=== PATIENT | male | born 1965 | race Asian ===

== ENCOUNTER 2019-03-09 20:28 | Inpatient (IN) | payer SELFPAY ==
--- NOTE | 2019-03-09 21:06 | PDOC ---
History of Present Illness - General Chief Complaint: Chest Pain Stated Complaint: CHEST PAIN Time Seen by Provider: 03/09/19 21:04 History Source: Patient Exam Limitations: No Limitations - History of Present Illness Initial Comments: 03/09/19 21:05 Shala Draper is a 53M from [place] with PMH 2ppd cigarette smoking history and hypercholesterolemia presenting with midsternal chest pain with exertion. Patient recently moved here from [place]. Previously otherwise healthy, sees private doctor in [place]. Now says that he has been having 3-4 days of substernal chest pain radiating down L arm after walking 5-6 minutes or walking up the stairs, denies chest pain at rest. No pain after or during meals, denies shortness of breath, personal cardiac or lung history, denies nausea/vomiting. Says he has been taking 81mg ASA daily per his PMD. Denies alcohol/drug use. No history of RI or stroke. No other PMH or medications taken. Past History - Past Medical History Allergies/Adverse Reactions: Allergies Allergy/AdvReac Type Severity Reaction Status Date / Time No Known Allergies Allergy Verified 03/09/19 20:39 Home Medications: Ambulatory Orders Aspirin 81 mg PO DAILY 03/09/19 COPD: No - Psycho Social/Smoking Cessation Hx Smoking History: Current every day smoker Have you smoked in the past 12 months: Yes Number of Cigarettes Smoked Daily: 20 Information on smoking cessation initiated: No Hx Alcohol Use: No Drug/Substance Use Hx: No Review of Systems - Review of Systems Able to Perform ROS?: Yes Constitutional: No: Symptoms Reported HEENTM: No: Symptoms Reported Respiratory: No: Symptoms reported Cardiac (ROS): Yes: Chest Pain. No: Lightheadedness, Palpitations ABD/GI: No: Constipated, Diarrhea, Nausea, Vomiting : No: Symptoms Reported Musculoskeletal: No: Symptoms Reported Integumentary: No: Symptoms Reported Neurological: No: Symptoms reported Endocrine: No: Symptoms Reported Hematologic/Lymphatic: No: Symptoms Reported All Other Systems: Reviewed and Negative *Physical Exam - Vital Signs Last Vital Signs Temp Pulse Resp BP Pulse Ox 98.3 F 82 19 134/74 100 03/09/19 20:34 03/09/19 20:34 03/09/19 20:34 03/09/19 20:34 03/09/19 20:34 - Physical Exam General Appearance: Yes: Nourished, Appropriately Dressed. No: Apparent Distress HEENT: positive: EOMI, KURT, Normal Voice, Pharynx Normal. negative: Scleral Icterus (R), Scleral Icterus (L), Pharyngeal Erythema, Tonsillar Exudate, Tonsillar Erythema Neck: positive: Trachea midline, Normal Thyroid, Supple. negative: Tender, Rigid, Lymphadenopathy (R), Lymphadenopathy (L) Respiratory/Chest: positive: Lungs Clear, Normal Breath Sounds. negative: Chest Tender, Respiratory Distress, Accessory Muscle Use, Crackles, Rales, Rhonchi Cardiovascular: positive: Regular Rhythm, Regular Rate, Other (speaking in full sentences without issue, observed standing and walking unassisted without elicitation of pain). negative: Edema, Murmur Gastrointestinal/Abdominal: positive: Normal Bowel Sounds, Flat, Soft. negative : Tender Musculoskeletal: positive: Normal Inspection. negative: CVA Tenderness Extremity: positive: Normal Capillary Refill, Normal Inspection, Normal Range of Motion. negative: Tender Integumentary: positive: Normal Color, Dry, Warm Neurologic: positive: Alert, Normal Mood/Affect, Normal Response Heart Score/ECG Review - History History: Highly suspicious - Electrocardiogram EKG: Non specific repolarization disturbance - Age Age: 45-65 - Risk Factors Risk Factors Heart Score: Yes Hx Hypercholesterolemia, No Hx Hypertension, No Hx Diabetes, Yes Smoking History, Yes Hx Obesity Based on the list above the patient has:: 1-2 risk factors - Troponin Troponin: </= normal limit - Score Heart Score - Total: 5 ED Treatment Course - LABORATORY CBC & Chemistry Diagram: 03/09/19 21:51 03/09/19 21:51 Medical Decision Making - Medical Decision Making 03/09/19 21:05 [facility] Bonny is a 53M from [place] with PMH 2ppd cigarette smoking history and hypercholesterolemia presenting with midsternal chest pain with exertion. Patient presentation is highly consistent with stable angina given specific finding of chest pain with exertion. No abnormalities noted on VS or PE. Patient placed on monitor, will evaluate via: ECG CMP CBC CP PT/INR/PTT CXR ECG in triage shows NSR with HR 77, QTc 418, no evidence of ischemic changes, T wave inversion in AVL concerning for inferior wall RI. No priors, will repeat in 1 hour. 03/09/19 22:34 CXR appears grossly normal with no concerning abnormalities on preliminary exam 03/09/19 22:39 No notable laboratory abnormalities. Initial troponins negative. Repeat ECG shows NSR with HR 70 and Qtc 419, no evidence of ischemic changes or T wave inversions. 03/09/19 23:[address] Jimenez regarding admission to tele/obs for ACS evaluation given picture highly consistent with stable angina. Patient and family at bedside had initial concerns about admission. Reiterated that without cardiology evaluation, patient was at increased risk of RI and possible HF if allowed to go home, and that prolonged low-exercise lifestyle to prevent exertional angina would not do anything to reduce this risk. Patient and family agree to overnight observation. Discharge - Discharge Information Problems reviewed: Yes Clinical Impression/Diagnosis: Chest pain Qualifiers: Chest pain type: unspecified Qualified Code(s): R07.9 - Chest pain, unspecified Condition: Stable - Admission Yes - Follow up/Referral - Patient Discharge Instructions - Post Discharge Activity
[2019-03-09] MEDS ORDERED: NITROGLYCERIN 2% OINTMENT - 1GM PACKET TD ONE ×2 (21:39→21:47)
[2019-03-09] MEDS ORDERED: ASPIRIN 81 MG CHEWABLE TABLETS PO ONE (21:54)
[2019-03-09] MEDS ORDERED: ASPIRIN 81 MG CHEWABLE TABLETS ONE (21:57)
[2019-03-09 22:03] LABS: BASO % 0.9 % (0-2.0); EOS % 3.4 % (0-4.5); HEMATOCRIT 45.5 % (35.4-49); HEMOGLOBIN 15.5 GM/dL (11.7-16.9); MCH 32.2 pg (25.7-33.7); MCHC 34.1 g/dl (32.0-35.9); MEAN CELL VOLUME 94.4 fl (80-96); MEAN PLT VOLUME 11.6 fl (7.5-11.1); NEUT % 54.7 % (42.8-82.8); PLATELET COUNT 177 K/MM3 (134-434); RBC 4.82 M/mm3 (4.00-5.60); RDW 13.1 % (11.9-15.9); WHITE BLOOD COUNT 9.1 K/mm3 (4.0-10.0)
[2019-03-09 22:29] LABS: ALBUMIN 3.8 g/dl (3.4-5.0); BILIRUBIN,TOTAL 0.4 mg/dL (0.2-1); BLOOD UREA NITROGEN 11.4 mg/dL (7-18); CALCIUM 8.6 mg/dL (8.5-10.1); CREATININE 1.1 mg/dL (0.55-1.3); POTASSIUM 4.3 mmol/L (3.5-5.1); TOT PROT 6.7 g/dl (6.4-8.2)
[2019-03-09 22:31] LABS: INR 0.98 (0.83-1.09); PROTHROMBIN TIME (PATIENT) 11.6 SEC (9.7-13.0)
[2019-03-09 22:33] LABS: ACTIVATED PTT 33.1 SECONDS (25.2-36.5)
--- NOTE | 2019-03-09 22:36 | PDOC ---
Documentation entered by Rose Marie Garcia SCRIBE, acting as scribe for Kristian Deras MD. Kristian Deras MD: This documentation has been prepared by the Jose wood Adrianna, SCRIBE, under my direction and personally reviewed by me in its entirety. I confirm that the documentation accurately reflects all work, treatment, procedures, and medical decision making performed by me. Attending Attestation - Resident Resident Name: Vu Loja - ED Attending Attestation I have performed the following: I have examined & evaluated the patient, The case was reviewed & discussed with the resident, I agree w/resident's findings & plan, Exceptions are as noted - HPI HPI: 53 y.o M, PMH of HLD, presenting with chest pain. Patient endorses retro- sternal chest pain on exertion for the past 3-4 days, which radiates down his left arm. Allergies: NKA, NKDA Surgical History: None reported Social History: Current everyday smoker (1ppd) - Physicial Exam PE: 03/09/19 22:33 Patient is awake and alert, well-nourished, in no distress Normocephalic and atraumatic PERRLA, EOMI, No JVD CTA RRR No lower extremity edema - Medical Decision Making 03/09/19 22:35 Patient is a 53-year-old male with history of smoking, hyperlipidemia and hypertension who comes in with signs and symptoms of unstable angina. Initial EKG reveals inverted T in aVL but no other evidence of acute ischemia. First set of cardiac enzymes within normal limit. Chest x-ray reveals no evidence of cardiomegaly/infiltrate or effusion. Patient's heart score is noted to be 4. Patient will be placed on telemetry/obvious for serial enzymes and cardiac evaluation.
--- NOTE | 2019-03-09 22:57 | PN ---
Teaching Attending Note Name of Resident: Nancy Jimenez ATTENDING PHYSICIAN STATEMENT I saw and evaluated the patient. I reviewed the resident's note and discussed the case with the resident. I agree with the resident's findings and plan as documented. SUBJECTIVE: Patient is a 53 year old man from [place] with PMH Heavy tobacco use and Hypercholesterolemia presenting with midsternal chest pain with exertion. Patient recently moved here from [place]. Previously otherwise healthy, sees private doctor in [place]. Now says that he has been having 3-4 days of substernal chest pain radiating down L arm after walking 5-6 minutes or walking up the stairs. Denies chest pain at rest. No pain after or during meals, denies shortness of breath, personal cardiac or lung history, denies nausea/vomiting. Says he has been taking 81mg ASA daily per his PMD. Denies alcohol or illicit drug use. No history of NE or stroke. Denies fever, chills, headache, nausea, vomiting, abdominal pain, dysuria, frequency, diarrhea or constipation. Has extensive family history of CAd and acute MIs. OBJECTIVE: Alert Vital Signs Period Temp Pulse Resp BP Sys/Caal Pulse Ox Last 24 Hr 98.3 F 82 19 134/74 100 HEENT: No Jaundice, eye redness or discharge, PERRLA, EOMI. Normocephalic, atraumatic. External ears are normal and hearing is grossly intact. No nasal discharge. Neck: Supple, nontender. No palpable adenopathy or thyromegaly. No JVD Chest: Good effort. Clear to auscultation and percussion. Heart: Regular. No S3, rub or murmur Abdomen: Not distended, soft, nontender and no HSM. No rebound or guarding. Normal bowel sounds. Ext: Peripheral pulses intact. No leg edema. Skin: Warm and dry. No petechiae, rash or ecchymosis. Neuro: Alert. Oriented x3. CN 2-12 grossly intact. Sensation grossly intact in all four extremities and DTR are symmetric. Psych: Appropriate mood and affect. Good insight. Home Medications Medication Instructions Recorded Aspirin 81 mg PO DAILY 03/09/19 Abnormal Lab Results 03/09/19 03/09/19 21:51 21:51 MPV 11.6 H Chloride 108 H Anion Gap 6 L Random Glucose 139 H ALT 106 H ASSESSMENT AND PLAN: 1. Chest pain - Has risk factors for ACS. Now pain free. Got Nitropaste and Aspirin 324 mg in the ER. EKG is NSR with no significant ST-T wave changes and initial troponin is negative. Will admit to telemetry to rule out ACS, get ECHO , fasting lipid profile, HbA1c, TSH and consult cardiology. 2. Tobacco Use Counseled on risks associated with tobacco use. We will provide patient all the necessary assistance to facilitate smoking cessation and prescribe Nicotine patch. 3. Overweight Counseled on the risks associated with being overweight. Will provide patient all the necessary assistance, counseling and positive reinforcement to facilitate weight loss. Consult stewardesses teacher. 4. DVT prophylaxis - Lovenox 40 mg SQ q 24 hours. 5. Advance directives - Full code
--- NOTE | 2019-03-10 00:43 | HP ---
CHIEF COMPLAINT: chest pain PCP: none HISTORY OF PRESENT ILLNESS: Patient is a 53 y/o male with a history of HLD (not on medication) who presents for chest pain. Patient has been having this chest pain for 4-5 days and it is worsening. The pain is only present with exercise. If the patient rests then the pain resolves. Patient denies shortness of breath but does fell sweaty with the pain. He describes the pain as sharp and non radiating to his back, it does radiate down his left arm. Patient denies ever having this pain in the past and has not had any cardiac testing. Denies fever, chills, nausea, vomiting, shortness of breath, or headache. ER course was notable for: (1) (2) (3) Recent Travel: moved from [place] one month ago PAST MEDICAL HISTORY: HLD PAST SURGICAL HISTORY: denies Social History: Smokinppd since teenager Alcohol: Drugs: denies FMHX: very strong cardiac family history, DC in mother, father, uncles Allergies No Known Allergies Allergy (Verified 03/09/19 20:39) HOME MEDICATIONS: Home Medications Medication Instructions Recorded Aspirin 81 mg PO DAILY 03/09/19 REVIEW OF SYSTEMS CONSTITUTIONAL: Absent: fever, chills, diaphoresis, generalized weakness, malaise, loss of appetite, weight change HEENT: Absent: rhinorrhea, nasal congestion, throat pain, throat swelling, difficulty swallowing, mouth swelling, ear pain, eye pain, visual changes CARDIOVASCULAR: Absent: chest pain, syncope, palpitations, irregular heart rate, lightheadedness , peripheral edema RESPIRATORY: Absent: cough, shortness of breath, dyspnea with exertion, orthopnea, wheezing, stridor, hemoptysis GASTROINTESTINAL: Absent: abdominal pain, abdominal distension, nausea, vomiting, diarrhea, constipation, melena, hematochezia GENITOURINARY: Absent: dysuria, frequency, urgency, hesitancy, hematuria, flank pain, genital pain MUSCULOSKELETAL: Absent: myalgia, arthralgia, joint swelling, back pain, neck pain SKIN: Absent: rash, itching, pallor HEMATOLOGIC/IMMUNOLOGIC: Absent: easy bleeding, easy bruising, lymphadenopathy, frequent infections ENDOCRINE: Absent: unexplained weight gain, unexplained weight loss, heat intolerance, cold intolerance NEUROLOGIC: Absent: headache, focal weakness or paresthesias, dizziness, unsteady gait, seizure, mental status changes, bladder or bowel incontinence PSYCHIATRIC: Absent: anxiety, depression, suicidal or homicidal ideation, hallucinations. PHYSICAL EXAMINATION Vital Signs - 24 hr 03/09/19 03/09/19 20:34 23:07 Temperature 98.3 F Pulse Rate 82 Pulse Rate [ 78 Apical] Respiratory 19 18 Rate Blood Pressure 134/74 Blood Pressure 119/74 [Left Arm] O2 Sat by Pulse 100 100 Oximetry (%) GENERAL: Awake, alert, and fully oriented, in no acute distress. HEAD: Normal with no signs of trauma. EYES: Pupils equal, round and reactive to light, extraocular movements intact, EARS, NOSE, THROAT: Moist mucous membranes. LUNGS: Breath sounds equal, clear to auscultation bilaterally. No wheezes, and no crackles. No accessory muscle use. HEART: Regular rate and rhythm, normal S1 and S2 without murmur, rub or gallop. ABDOMEN: Soft, nontender, not distended, normoactive bowel sounds, no guarding, MUSCULOSKELETAL: Normal range of motion at all joints. No bony deformities or tenderness. No CVA tenderness. LOWER EXTREMITIES: 2+ pulses, warm, well-perfused. No calf tenderness. No peripheral edema. SKIN: Warm, dry, normal turgor, no rashes or lesions noted, normal capillary refill. CBC, BMP 03/09/19 21:51 03/09/19 21:51 ASSESSMENT/PLAN: Patient is a 53 y/o male with a history of HLD (not on medication) who presents for chest pain. #angina - stable in description, but new in nature, patient likely needs cath given history - monitor on tele - trops negative x2 - EKg only one t wave inversion but not in contiguous leads - low suspicion for ACS - continue daily ASA - f/u lipids and restart a statin - f/u Dr. Gandara DVT ppx - continue lovenox Dispo: monitor on tele, patient can likely go home in the morning Visit type - Emergency Visit Emergency Visit: Yes ED Registration Date: 03/09/19 Care time: The patient presented to the Emergency Department on the above date and was hospitalized for further evaluation of their emergent condition. - New Patient This patient is new to me today: Yes Date on this admission: 03/10/19 - Critical Care Critical Care patient: No ATTENDING PHYSICIAN STATEMENT I saw and evaluated the patient. I reviewed the resident's note and discussed the case with the resident. I agree with the resident's findings and plan as documented. SUBJECTIVE: OBJECTIVE: ASSESSMENT AND PLAN:
[2019-03-10 06:47] VITALS: BMI 28.4
[2019-03-10 07:55] LABS: BASO % 0.5 % (0-2.0); EOS % 3.6 % (0-4.5); HEMATOCRIT 44.5 % (35.4-49); HEMOGLOBIN 15.4 GM/dL (11.7-16.9); LYMPH % 36.2 % (8-40); MCH 32.4 pg (25.7-33.7); MCHC 34.5 g/dl (32.0-35.9); MEAN CELL VOLUME 93.8 fl (80-96); MONO % 6.4 % (3.8-10.2); NEUT % 53.3 % (42.8-82.8); PLATELET COUNT 177 K/MM3 (134-434); RBC 4.75 M/mm3 (4.00-5.60); RDW 12.9 % (11.9-15.9); WHITE BLOOD COUNT 6.8 K/mm3 (4.0-10.0)
[2019-03-10 08:01] LABS: ALBUMIN 3.6 g/dl (3.4-5.0); BILIRUBIN,TOTAL 0.5 mg/dL (0.2-1); CALCIUM 8.7 mg/dL (8.5-10.1); MAGNESIUM 2.4 mg/dL (1.8-2.4); PHOSPHOROUS 3.2 mg/dL (2.5-4.9); POTASSIUM 4.6 mmol/L (3.5-5.1); TOT PROT 6.4 g/dl (6.4-8.2)
[2019-03-10 08:20] LABS: CHOLESTEROL 194 mg/dL (50-200); HDL CHOLESTEROL 35 mg/dL (40-60); LDL CHOLESTEROL (ONLY SJRH) 143 mg/dL (5-100); TRIGLYCERIDES 133 mg/dL (0-150)
--- NOTE | 2019-03-10 09:22 | CON.CARD ---
Consult Consult Specialty:: Cardiology consultation for dr. Gandara - History of Present Illness History of Present Illness: Patient is a 53 y/o male with a history of HLD (not on medication) who presents for chest pain. Patient has been having this chest pain for 4-5 days and it is worsening. The pain is only present with exercise. If the patient rests then the pain resolves. Patient denies shortness of breath but does fell sweaty with the pain. He describes the pain as sharp and non radiating to his back, it does radiate down his left arm. Patient denies ever having this pain in the past and has not had any cardiac testing. Denies fever, chills, nausea, vomiting, shortness of breath, or headache. - History Source History Provided By: Patient, Medical Record - Alcohol/Substance Use Hx Alcohol Use: No - Smoking History Smoking history: Current every day smoker Have you smoked in the past 12 months: Yes Aproximately how many cigarettes per day: 20 Home Medications - Allergies Allergies/Adverse Reactions: Allergies Allergy/AdvReac Type Severity Reaction Status Date / Time No Known Allergies Allergy Verified 03/09/19 20:39 - Home Medications Home Medications: Ambulatory Orders Aspirin 81 mg PO DAILY 03/09/19 Vital Signs: Vital Signs Temperature 97.5 F L 03/10/19 02:05 Pulse Rate 65 03/10/19 03:08 Respiratory Rate 18 03/10/19 06:20 Blood Pressure 134/77 03/10/19 02:05 O2 Sat by Pulse Oximetry (%) 100 03/10/19 06:20 Constitutional: Yes: Well Nourished, No Distress, Calm Eyes: Yes: WNL, Conjunctiva Clear, EOM Intact HENT: Yes: WNL, Atraumatic, Normocephalic Neck: Yes: WNL, Supple, Trachea Midline Respiratory: Yes: WNL, Regular, CTA Bilaterally Gastrointestinal: Yes: WNL, Normal Bowel Sounds Renal/: Yes: WNL Cardiovascular: Yes: WNL, Regular Rate and Rhythm Heart Sounds: Yes: S1, S2 Musculoskeletal: Yes: WNL Extremities: Yes: WNL Integumentary: Yes: WNL Neurological: Yes: WNL, Alert, Oriented ...Motor Strength: WNL Psychiatric: Yes: WNL, Alert, Oriented - Other Data Labs, Other Data: CBC, BMP 03/10/19 05:30 03/10/19 05:30 INR, PTT INR 0.98 (0.83-1.09) 03/09/19 21:51 Troponin, BNP 03/09/19 03/10/19 21:51 01:34 Troponin I < 0.02 < 0.02 Troponin, BNP 03/09/19 03/10/19 21:51 01:34 Troponin I < 0.02 < 0.02 Laboratory Tests 03/09/19 03/09/19 03/09/19 21:51 21:51 21:51 WBC 9.1 RBC 4.82 Hgb 15.5 Hct 45.5 MCV 94.4 MCH 32.2 MCHC 34.1 RDW 13.1 Plt Count 177 MPV 11.6 H Absolute Neuts (auto) 5.0 Neutrophils % 54.7 Lymphocytes % 34.0 Monocytes % 7.0 Eosinophils % 3.4 Basophils % 0.9 Nucleated RBC % 0 PT with INR INR PTT (Actin FS) Sodium 140 Potassium 4.3 Chloride 108 H Carbon Dioxide 26 Anion Gap 6 L BUN 11.4 Creatinine 1.1 Est GFR (CKD-EPI)AfAm 87.74 Est GFR (CKD-EPI)NonAf 75.70 POC Glucometer Random Glucose 139 H Calcium 8.6 Phosphorus Magnesium Total Bilirubin 0.4 AST 35 ALT 106 H Alkaline Phosphatase 85 Creatine Kinase 130 Troponin I < 0.02 Total Protein 6.7 Albumin 3.8 Triglycerides Cholesterol Total LDL Cholesterol HDL Cholesterol 03/09/19 03/10/19 03/10/19 21:51 01:34 02:37 WBC RBC Hgb Hct MCV MCH MCHC RDW Plt Count MPV Absolute Neuts (auto) Neutrophils % Lymphocytes % Monocytes % Eosinophils % Basophils % Nucleated RBC % PT with INR 11.60 INR 0.98 PTT (Actin FS) 33.1 Sodium Potassium Chloride Carbon Dioxide Anion Gap BUN Creatinine Est GFR (CKD-EPI)AfAm Est GFR (CKD-EPI)NonAf POC Glucometer 126 Random Glucose Calcium Phosphorus Magnesium Total Bilirubin AST ALT Alkaline Phosphatase Creatine Kinase Troponin I < 0.02 Total Protein Albumin Triglycerides Cholesterol Total LDL Cholesterol HDL Cholesterol 03/10/19 03/10/19 03/10/19 05:30 05:30 05:30 WBC 6.8 RBC 4.75 Hgb 15.4 Hct 44.5 MCV 93.8 MCH 32.4 MCHC 34.5 RDW 12.9 Plt Count 177 MPV 12.0 H Absolute Neuts (auto) 3.6 Neutrophils % 53.3 Lymphocytes % 36.2 Monocytes % 6.4 Eosinophils % 3.6 Basophils % 0.5 Nucleated RBC % 0 PT with INR INR PTT (Actin FS) Sodium 141 Potassium 4.6 Chloride 108 H Carbon Dioxide 24 Anion Gap 9 BUN 10.0 Creatinine 1.0 Est GFR (CKD-EPI)AfAm 98.46 Est GFR (CKD-EPI)NonAf 84.95 POC Glucometer Random Glucose 119 H Calcium 8.7 Phosphorus 3.2 Magnesium 2.4 Total Bilirubin 0.5 AST 43 H ALT 107 H Alkaline Phosphatase 73 Creatine Kinase Troponin I Total Protein 6.4 Albumin 3.6 Triglycerides 133 Cholesterol 194 Total LDL Cholesterol 143 H HDL Cholesterol 35 L 03/10/19 06:45 WBC RBC Hgb Hct MCV MCH MCHC RDW Plt Count MPV Absolute Neuts (auto) Neutrophils % Lymphocytes % Monocytes % Eosinophils % Basophils % Nucleated RBC % PT with INR INR PTT (Actin FS) Sodium Potassium Chloride Carbon Dioxide Anion Gap BUN Creatinine Est GFR (CKD-EPI)AfAm Est GFR (CKD-EPI)NonAf POC Glucometer 125 Random Glucose Calcium Phosphorus Magnesium Total Bilirubin AST ALT Alkaline Phosphatase Creatine Kinase Troponin I Total Protein Albumin Triglycerides Cholesterol Total LDL Cholesterol HDL Cholesterol Imaging - Results Chest X-ray: Image Reviewed (no i/e) EKG: Image Reviewed (sr wnl) Problem List - Problems (1) Chest pain Code(s): R07.9 - CHEST PAIN, UNSPECIFIED Qualifiers: Chest pain type: unspecified Qualified Code(s): R07.9 - Chest pain, unspecified Assessment/Plan 53 y/o male with a history of HLD (not on medication), strong family CAD h/o, smoker who presents for chest pain. Patient has been having this chest pain for 4-5 days and it is worsening. The pain is only present with exercise. r/o mi neg tele neg ekg nl Plan; r/o mi asa/Plavix lipitor Toprol echo mibi stress test Coverage for dr. Gandara
[2019-03-10] MEDS ORDERED: CLOPIDOGREL BISULFATE 300 MG TABLET PO ONE (09:30)
--- NOTE | 2019-03-10 09:53 | PN ---
Progress Note (short form) - Note Progress Note: Patient is an yoruba speaking , presented with chest pain on exertion. he is visiting here from [place], has been here a month. Vital Signs Temperature 97.5 F L 03/10/19 02:05 Pulse Rate 65 03/10/19 03:08 Respiratory Rate 18 03/10/19 06:20 Blood Pressure 134/77 03/10/19 02:05 O2 Sat by Pulse Oximetry (%) 100 03/10/19 06:20 GENERAL: The patient is awake, alert, and fully oriented, in no acute distress. HEAD: Normal with no signs of trauma. EYES: PERRL, extraocular movements intact, sclera anicteric, conjunctiva clear. ENT: Ears normal, oropharynx clear without exudates, moist mucous membranes. NECK: Trachea midline, full range of motion, supple. LUNGS: Breath sounds equal, clear to auscultation bilaterally, no wheezes, no crackles, no accessory muscle use. HEART: Regular rate and rhythm, S1, S2 without murmur, rub or gallop. ABDOMEN: Soft, nontender, nondistended, normoactive bowel sounds, no guarding, no rebound, no hepatosplenomegaly, no masses. EXTREMITIES: 2+ pulses, warm, well-perfused, no edema. NEUROLOGICAL: Cranial nerves II through XII grossly intact. Normal speech, gait not observed. PSYCH: Normal mood, normal affect. SKIN: Warm, dry, normal turgor, no rashes or lesions noted CBCD WBC 6.8 K/mm3 (4.0-10.0) 03/10/19 05:30 RBC 4.75 M/mm3 (4.00-5.60) 03/10/19 05:30 Hgb 15.4 GM/dL (11.7-16.9) 03/10/19 05:30 Hct 44.5 % (35.4-49) 03/10/19 05:30 MCV 93.8 fl (80-96) 03/10/19 05:30 MCHC 34.5 g/dl (32.0-35.9) 03/10/19 05:30 RDW 12.9 % (11.9-15.9) 03/10/19 05:30 Plt Count 177 K/MM3 (134-434) 03/10/19 05:30 MPV 12.0 fl (7.5-11.1) H 03/10/19 05:30 CMP Sodium 141 mmol/L (136-145) 03/10/19 05:30 Potassium 4.6 mmol/L (3.5-5.1) 03/10/19 05:30 Chloride 108 mmol/L (98-107) H 03/10/19 05:30 Carbon Dioxide 24 mmol/L (21-32) 03/10/19 05:30 Anion Gap 9 MMOL/L (8-16) 03/10/19 05:30 BUN 10.0 mg/dL (7-18) 03/10/19 05:30 Creatinine 1.0 mg/dL (0.55-1.3) 03/10/19 05:30 Random Glucose 119 mg/dL (74-106) H 03/10/19 05:30 Calcium 8.7 mg/dL (8.5-10.1) 03/10/19 05:30 Total Bilirubin 0.5 mg/dL (0.2-1) 03/10/19 05:30 AST 43 U/L (15-37) H 03/10/19 05:30 ALT 107 U/L (13-61) H 03/10/19 05:30 Alkaline Phosphatase 73 U/L (45-117) 03/10/19 05:30 Total Protein 6.4 g/dl (6.4-8.2) 03/10/19 05:30 Albumin 3.6 g/dl (3.4-5.0) 03/10/19 05:30 CARDIAC ENZYMES Creatine Kinase 130 U/L (26-308) 03/09/19 21:51 Troponin I < 0.02 ng/ml (0.00-0.05) 03/10/19 01:34 Current Medications Generic Name Dose Route Start Last Admin Trade Name Freq PRN Reason Stop Dose Admin Aspirin 81 mg 03/10/19 10:00 Asa - PO DAILY [facility] Atorvastatin Calcium 20 mg 03/10/19 22:00 Lipitor - PO HS [facility] Clopidogrel Bisulfate 75 mg 03/10/19 10:00 Plavix - PO DAILY [facility] Enoxaparin Sodium 40 mg 03/10/19 10:00 Lovenox - SQ DAILY [facility] Metoprolol Succinate 25 mg 03/10/19 10:00 Toprol Xl - PO DAILY [facility] Home Medications Medication Instructions Recorded Aspirin 81 mg PO DAILY 03/09/19 Assessment and plan: Patient is a 53yo male with a PMhx of HLD (not on medication), strong family CAD h/o smoking who presents with chest pain on exertion. Patient has been having this chest pain for 4-5 days and it is worsening. # Angina r/o ACS ; ekg nl on asa/plavix/lipitor/toprol , cardio consult seen by dr emma berumen MD echo, mibi stress test on tuesday. DVT Px: continue lovenox Laboratory Tests 03/09/19 03/10/19 03/10/19 21:51 01:34 05:30 Troponin I < 0.02 < 0.02 Triglycerides 133 Cholesterol 194 Total LDL Cholesterol 143 H HDL Cholesterol 35 L Visit type - Emergency Visit Emergency Visit: Yes ED Registration Date: 03/09/19 Care time: The patient presented to the Emergency Department on the above date and was hospitalized for further evaluation of their emergent condition. - New Patient This patient is new to me today: Yes Date on this admission: 03/10/19 - Critical Care Critical Care patient: No - Discharge Referral Referred to [facility] Med P.C.: No
[2019-03-10] MEDS: ENOXAPARIN NA (PORCINE) 40 MG/0.4 ML DISP.SYRIN SQ SCH (10:08)
[2019-03-10] MEDS: CLOPIDOGREL BISULFATE 75 MG TABLET (FP) PO SCH (10:08)
[2019-03-10] MEDS: ASPIRIN 81 MG CHEWABLE TABLETS PO SCH (10:08)
[2019-03-10] MEDS: metoPROLOL SUCCINATE 25 MG TAB.SR.24H (FP) PO SCH (10:08)
--- NOTE | 2019-03-10 14:39 | EKG ---
Test Reason : Blood Pressure : / mmHG Vent. Rate : 079 BPM Atrial Rate : 079 BPM P-R Int : 150 ms QRS Dur : 088 ms QT Int : 358 ms P-R-T Axes : 045 055 063 degrees QTc Int : 410 ms NORMAL SINUS RHYTHM NORMAL ECG WHEN COMPARED WITH ECG OF 09-MAR-2019 22:51, NO SIGNIFICANT CHANGE WAS FOUND Confirmed by HARRISON MENJIVAR, MITCHELL ([id number]) on 03/10/2019 2:39:36 PM Referred By: Jamie DAWSON Confirmed By:MITCHELL TERRY MD
--- NOTE | 2019-03-10 14:52 | EKG ---
Test Reason : Blood Pressure : / mmHG Vent. Rate : 077 BPM Atrial Rate : 077 BPM P-R Int : 150 ms QRS Dur : 092 ms QT Int : 370 ms P-R-T Axes : 069 064 072 degrees QTc Int : 418 ms NORMAL SINUS RHYTHM NORMAL ECG NO PREVIOUS ECGS AVAILABLE Confirmed by HARRISON MENJIVAR, MITCHELL ([id number]) on 03/10/2019 2:52:20 PM Referred By: Confirmed By:MITCHELL TERRY MD
--- NOTE | 2019-03-10 14:55 | EKG ---
Test Reason : Blood Pressure : / mmHG Vent. Rate : 070 BPM Atrial Rate : 070 BPM P-R Int : 158 ms QRS Dur : 092 ms QT Int : 388 ms P-R-T Axes : 073 052 064 degrees QTc Int : 419 ms NORMAL SINUS RHYTHM NORMAL ECG NO PREVIOUS ECGS AVAILABLE Confirmed by HARRISON MENJIVAR, MITCHELL ([id number]) on 03/10/2019 2:55:23 PM Referred By: Confirmed By:MITCHELL TERRY MD
[2019-03-10] MEDS: ATORVASTATIN CA 20 MG TABLET (FP) PO SCH (21:47)
[2019-03-10] MEDS: NICOTINE 14 MG/24 HOURS TOPICAL PATCH TD SCH (21:47)
[2019-03-11] MEDS: NICOTINE 14 MG/24 HOURS TOPICAL PATCH TD SCH (09:53)
[2019-03-11] MEDS: ASPIRIN 81 MG CHEWABLE TABLETS PO SCH (09:53)
[2019-03-11] MEDS: metoPROLOL SUCCINATE 25 MG TAB.SR.24H (FP) PO SCH (09:53)
[2019-03-11] MEDS: CLOPIDOGREL BISULFATE 75 MG TABLET (FP) PO SCH (09:53)
[2019-03-11] MEDS: ENOXAPARIN NA (PORCINE) 40 MG/0.4 ML DISP.SYRIN SQ SCH (09:53)
--- NOTE | 2019-03-11 11:41 | PN ---
Progress Note, Physician History of Present Illness: Patient is a 53 y/o male with a history of HLD (not on medication) who presents for chest pain. Patient has been having this chest pain for 4-5 days and it is worsening. The pain is only present with exercise. If the patient rests then the pain resolves. Patient denies shortness of breath but does fell sweaty with the pain. He describes the pain as sharp and non radiating to his back, it does radiate down his left arm. Patient denies ever having this pain in the past and has not had any cardiac testing. Denies fever, chills, nausea, vomiting, shortness of breath, or headache. - Current Medication List Current Medications: Active Medications Aspirin (Asa -) 81 mg PO DAILY [facility] Last Admin: 03/11/19 09:53 Dose: 81 mg Atorvastatin Calcium (Lipitor -) 20 mg PO HS [facility] Last Admin: 03/10/19 21:47 Dose: 20 mg Clopidogrel Bisulfate (Plavix -) 75 mg PO DAILY [facility] Last Admin: 03/11/19 09:53 Dose: 75 mg Enoxaparin Sodium (Lovenox -) 40 mg SQ DAILY [facility] Last Admin: 03/11/19 09:53 Dose: 40 mg Metoprolol Succinate (Toprol Xl -) 25 mg PO DAILY [facility] Last Admin: 03/11/19 09:53 Dose: 25 mg Nicotine (Nicoderm Patch -) 14 mg TD DAILY [facility] Last Admin: 03/11/19 09:53 Dose: 14 mg - Objective Vital Signs: Vital Signs Temperature 98.2 F 03/11/19 10:00 Pulse Rate 88 03/11/19 10:00 Respiratory Rate 22 H 03/11/19 10:00 Blood Pressure 126/80 03/11/19 10:00 O2 Sat by Pulse Oximetry (%) 99 03/11/19 09:00 Eyes: Yes: WNL, Conjunctiva Clear, EOM Intact HENT: Yes: WNL, Atraumatic, Normocephalic Neck: Yes: WNL, Supple, Trachea Midline Cardiovascular: Yes: WNL, Regular Rate and Rhythm Respiratory: Yes: WNL, Regular, CTA Bilaterally Gastrointestinal: Yes: WNL, Normal Bowel Sounds Genitourinary: Yes: WNL Musculoskeletal: Yes: WNL Extremities: Yes: WNL Edema: No Integumentary: Yes: WNL Neurological: Yes: WNL, Alert, Oriented ...Motor Strength: WNL Psychiatric: Yes: WNL Labs: CBC, BMP 03/10/19 05:30 03/10/19 05:30 INR, PTT INR 0.98 (0.83-1.09) 03/09/19 21:51 Problem List - Problems (1) Chest pain Code(s): R07.9 - CHEST PAIN, UNSPECIFIED Qualifiers: Chest pain type: unspecified Qualified Code(s): R07.9 - Chest pain, unspecified Assessment/Plan 53 y/o male with a history of HLD (not on medication), strong family CAD h/o, smoker who presents for chest pain. Patient has been having this chest pain for 4-5 days and it is worsening. The pain is only present with exercise. r/o mi neg tele neg ekg nl Plan; r/o mi asa/Plavix lipitor Toprol echo mibi stress test in am Coverage for dr. Gandara
--- NOTE | 2019-03-11 13:35 | PN ---
Physical Exam: SUBJECTIVE: Patient seen and examined at bedside. No acute complaints. Chest pain resolved. OBJECTIVE: Vital Signs Period Temp Pulse Resp BP Sys/Caal Pulse Ox Last 24 Hr 97.5 F-98.3 F 67-88 18-22 116-135/67-83 99-100 GENERAL: A&Ox3, no acute distress EYES: PERRLA, EOMI ENT: Moist mucus membranes NECK: No JVD LUNGS: CTA, no wheezes HEART: RRR, no murmurs ABDOMEN: Soft, nontender, BS present MUSCULOSKELETAL: No CVA Tenderness EXTREMITIES: 2+ pulses, no edema. NEUROLOGICAL: Cranial nerves II-XII intact. Laboratory Results - last 24 hr 03/11/19 03/11/19 04:37 12:29 POC Glucometer 127 127 Active Medications Generic Name Dose Route Start Last Admin Trade Name Freq PRN Reason Stop Dose Admin Aspirin 81 mg 03/10/19 10:00 03/11/19 09:53 Asa - PO 81 mg DAILY [facility] Administration Atorvastatin Calcium 20 mg 03/10/19 22:00 03/10/19 21:47 Lipitor - PO 20 mg HS [facility] Administration Clopidogrel Bisulfate 75 mg 03/10/19 10:00 03/11/19 09:53 Plavix - PO 75 mg DAILY [facility] Administration Enoxaparin Sodium 40 mg 03/10/19 10:00 03/11/19 09:53 Lovenox - SQ 40 mg DAILY [facility] Administration Metoprolol Succinate 25 mg 03/10/19 10:00 03/11/19 09:53 Toprol Xl - PO 25 mg DAILY [facility] Administration Nicotine 14 mg 03/10/19 20:45 03/11/19 09:53 Nicoderm Patch - TD 14 mg DAILY [facility] Administration ASSESSMENT/PLAN: 53 year old male with a history of hyperlipidemia here for anginal chest pain to rule out ACS #Chest Pain: coudl be anginal in origin -for stress MIBI in the morning -on tele -cards consulted -ASA, plavix -statin -EKG without signs of ischemia -metoprolol DVT ppx -lovenox Dispo: monitor on tele, patient can likely go home in the morning Visit type - Emergency Visit Emergency Visit: No - New Patient This patient is new to me today: Yes Date on this admission: 03/11/19 - Critical Care Critical Care patient: No ATTENDING PHYSICIAN STATEMENT I saw and evaluated the patient. I reviewed the resident's note and discussed the case with the resident. I agree with the resident's findings and plan as documented. SUBJECTIVE: OBJECTIVE: ASSESSMENT AND PLAN:
--- NOTE | 2019-03-11 18:39 | PN ---
Teaching Attending Note Name of Resident: Baljeet Cochran ATTENDING PHYSICIAN STATEMENT I saw and evaluated the patient. I reviewed the resident's note and discussed the case with the resident. I agree with the resident's findings and plan as documented. Patient is an setswana speaking , Denies any chest pain with no acute distress. he is visiting here from [place], has been here a month. Vital Signs Temperature 97.5 F L 03/10/19 02:05 Pulse Rate 65 03/10/19 03:08 Respiratory Rate 18 03/10/19 06:20 Blood Pressure 134/77 03/10/19 02:05 O2 Sat by Pulse Oximetry (%) 100 03/10/19 06:20 GENERAL: The patient is awake, alert, and fully oriented, in no acute distress. HEAD: Normal with no signs of trauma. EYES: PERRL, extraocular movements intact, sclera anicteric, conjunctiva clear. ENT: Ears normal, oropharynx clear without exudates, moist mucous membranes. NECK: Trachea midline, full range of motion, supple. LUNGS: Breath sounds equal, clear to auscultation bilaterally, no wheezes, no crackles, no accessory muscle use. HEART: Regular rate and rhythm, S1, S2 without murmur, rub or gallop. ABDOMEN: Soft, nontender, nondistended, normoactive bowel sounds, no guarding, no rebound, no hepatosplenomegaly, no masses. EXTREMITIES: 2+ pulses, warm, well-perfused, no edema. NEUROLOGICAL: Cranial nerves II through XII grossly intact. Normal speech, gait not observed. PSYCH: Normal mood, normal affect. SKIN: Warm, dry, normal turgor, no rashes or lesions noted CBCD WBC 6.8 K/mm3 (4.0-10.0) 03/10/19 05:30 RBC 4.75 M/mm3 (4.00-5.60) 03/10/19 05:30 Hgb 15.4 GM/dL (11.7-16.9) 03/10/19 05:30 Hct 44.5 % (35.4-49) 03/10/19 05:30 MCV 93.8 fl (80-96) 03/10/19 05:30 MCHC 34.5 g/dl (32.0-35.9) 03/10/19 05:30 RDW 12.9 % (11.9-15.9) 03/10/19 05:30 Plt Count 177 K/MM3 (134-434) 03/10/19 05:30 MPV 12.0 fl (7.5-11.1) H 03/10/19 05:30 CMP Sodium 141 mmol/L (136-145) 03/10/19 05:30 Potassium 4.6 mmol/L (3.5-5.1) 03/10/19 05:30 Chloride 108 mmol/L (98-107) H 03/10/19 05:30 Carbon Dioxide 24 mmol/L (21-32) 03/10/19 05:30 Anion Gap 9 MMOL/L (8-16) 03/10/19 05:30 BUN 10.0 mg/dL (7-18) 03/10/19 05:30 Creatinine 1.0 mg/dL (0.55-1.3) 03/10/19 05:30 Random Glucose 119 mg/dL (74-106) H 03/10/19 05:30 Calcium 8.7 mg/dL (8.5-10.1) 03/10/19 05:30 Total Bilirubin 0.5 mg/dL (0.2-1) 03/10/19 05:30 AST 43 U/L (15-37) H 03/10/19 05:30 ALT 107 U/L (13-61) H 03/10/19 05:30 Alkaline Phosphatase 73 U/L (45-117) 03/10/19 05:30 Total Protein 6.4 g/dl (6.4-8.2) 03/10/19 05:30 Albumin 3.6 g/dl (3.4-5.0) 03/10/19 05:30 CARDIAC ENZYMES Creatine Kinase 130 U/L (26-308) 03/09/19 21:51 Troponin I < 0.02 ng/ml (0.00-0.05) 03/10/19 01:34 Current Medications Generic Name Dose Route Start Last Admin Trade Name Freq PRN Reason Stop Dose Admin Aspirin 81 mg 03/10/19 10:00 Asa - PO DAILY [facility] Atorvastatin Calcium 20 mg 03/10/19 22:00 Lipitor - PO HS [facility] Clopidogrel Bisulfate 75 mg 03/10/19 10:00 Plavix - PO DAILY [facility] Enoxaparin Sodium 40 mg 10/26/19 10:00 Lovenox - SQ DAILY [facility] Metoprolol Succinate 25 mg 03/10/19 10:00 Toprol Xl - PO DAILY [facility] Home Medications Medication Instructions Recorded Aspirin 81 mg PO DAILY 03/09/19 Laboratory Tests 03/09/19 03/10/19 03/10/19 21:51 01:34 05:30 Troponin I < 0.02 < 0.02 Triglycerides 133 Cholesterol 194 Total LDL Cholesterol 143 H HDL Cholesterol 35 L Assessment and plan: Patient is a 53yo male with a PMhx of HLD (not on medication), strong family CAD h/o smoking who presents with chest pain on exertion. Patient has been having this chest pain for 4-5 days and it is worsening. # Angina r/o ACS ; ekg nl on asa/plavix/lipitor/toprol , cardio consult seen by dr emma berumen MD echo, mibi stress test on tuesday. will continue to monitor DVT Px: continue lovenox
[2019-03-11] MEDS: ATORVASTATIN CA 20 MG TABLET (FP) PO SCH (21:22)
[2019-03-12 07:14] LABS: HEMATOCRIT 44.5 % (35.4-49); HEMOGLOBIN 15.5 GM/dL (11.7-16.9); MCH 32.3 pg (25.7-33.7); MCHC 34.8 g/dl (32.0-35.9); MEAN CELL VOLUME 92.9 fl (80-96); MEAN PLT VOLUME 11.9 fl (7.5-11.1); PLATELET COUNT 177 K/MM3 (134-434); RBC 4.79 M/mm3 (4.00-5.60); RDW 12.9 % (11.9-15.9)
[2019-03-12 07:58] LABS: BLOOD UREA NITROGEN 15.4 mg/dL (7-18); CALCIUM 8.6 mg/dL (8.5-10.1); POTASSIUM 4.1 mmol/L (3.5-5.1)
--- NOTE | 2019-03-12 11:07 | ECHO ---
Name: NETOWESTON SHIRLEYPRABHJOT Exam:Adult Echocardiogram Study Date: 03/12/2019 08:20 AM Age: 53 yrs Reason For Study: ef Height: 69 in Weight: 192 lb BSA: 2.0 m2 MMode/2D Measurements & Calculations IVSd: 0.85 cm Ao root diam: 2.6 cm LVIDd: 4.4 cm LA dimension: 3.3 cm LVIDs: 3.2 cm LVPWd: 1.0 cm LVPWs: 1.1 cm EDV(Teich): 85.9 ml ESV(Teich): 41.2 ml LVOT diam: 2.1 cm LAV (MOD-bp): 30.0 ml RV S Jorge: 12.5 cm/sec Doppler Measurements & Calculations MV E max jorge: 48.4 cm/sec Ao V2 max: 114.0 cm/sec MV A max jorge: 65.2 cm/sec Ao max P.3 mmHg MV E/A: 0.74 YOSHI(V,D): 2.6 cm2 MV dec time: 0.22 sec LV V1 max P.8 mmHg PA V2 max: 109.9 cm/sec LV V1 max: 84.4 cm/sec PA max P.9 mmHg Med Peak E' Jorge: 5.8 cm/sec Med E/e': 8.4 Lat Peak E' Jorge: 7.5 cm/sec Lat E/e': 6.4 Procedure A complete two-dimensional transthoracic echocardiogram was performed (2D, M-mode, Doppler and color flow Doppler). Left Ventricle The left ventricle is normal in size. Left ventricular systolic function is normal. Ejection Fraction = 60- 65%. Grade I diastolic dysfunction, (abnormal relaxation pattern). Ratio E/E'= 8. No regional wall mo tion abnormalities noted. Right Ventricle The right ventricle is normal size. The right ventricular systolic function is normal. RV systolic TD I is 12 cm/s. Atria The left atrial size is normal. Right atrial size is normal. Mitral Valve The mitral valve is normal in structure and function. There is no mitral regurgitation noted. Tricuspid Valve The tricuspid valve is normal in structure and function. There is mild tricuspid regurgitation. Aortic Valve The aortic valve is normal in structure and function. No aortic regurgitation is present. Pulmonic Valve The pulmonic valve is not well visualized. Mild pulmonic valvular regurgitation. Great Vessels The aortic root is normal size. Pericardium/Pleura There is no pericardial effusion. Interpretation Summary The left ventricle is normal in size. Left ventricular systolic function is normal. No regional wall motion abnormalities noted. Ejection Fraction = 60-65%. Grade I diastolic dysfunction, (abnormal relaxation pattern). Ratio E/E'= 8 The right ventricular systolic function is normal. The left atrial size is normal. Right atrial size is normal. There is mild tricuspid regurgitation. Mild pulmonic valvular regurgitation. There is no pericardial effusion. Previous study is not available for comparison Kamran Gandara MD 03/12/2019 11:07 AM
[2019-03-12] MEDS ORDERED: REGADENOSON 0.4 MG/5 ML PRE-FILLED SYRINGE IVPUSH ONE ×2 (12:39→13:30)
--- NOTE | 2019-03-12 12:41 | PN ---
Progress Note, Physician Chief Complaint: Events noted Chest pain with exertion and resolves with rest History of Present Illness: Patient was seen and examined during nuclear stress testing. Awake and alert. Chart was reviewed Patient had chest pain while on the treadmill and had to be stopped prematurely. Lexiscan was given instead and had recurrent chest tightness. He was given Aminophylline to reverse the Lexiscan and was given SL NTG with relief of chest pain. - Current Medication List Current Medications: Active Medications Aspirin (Asa -) 81 mg PO DAILY [facility] Last Admin: 03/11/19 09:53 Dose: 81 mg Atorvastatin Calcium (Lipitor -) 20 mg PO HS [facility] Last Admin: 03/11/19 21:22 Dose: 20 mg Clopidogrel Bisulfate (Plavix -) 75 mg PO DAILY [facility] Last Admin: 03/11/19 09:53 Dose: 75 mg Enoxaparin Sodium (Lovenox -) 40 mg SQ DAILY [facility] Last Admin: 03/11/19 09:53 Dose: 40 mg Metoprolol Succinate (Toprol Xl -) 25 mg PO DAILY [facility] Last Admin: 03/11/19 09:53 Dose: 25 mg Nicotine (Nicoderm Patch -) 14 mg TD DAILY [facility] Last Admin: 03/11/19 09:53 Dose: 14 mg - Objective Vital Signs: Vital Signs Temperature 98.4 F 03/12/19 09:00 Pulse Rate 88 03/12/19 09:00 Respiratory Rate 20 03/12/19 09:00 Blood Pressure 114/75 03/12/19 09:00 O2 Sat by Pulse Oximetry (%) 99 03/11/19 20:49 Eyes: Yes: PERRL HENT: Yes: Atraumatic Neck: Yes: Supple Cardiovascular: Yes: Regular Rate and Rhythm, S1, S2 Respiratory: Yes: CTA Bilaterally Gastrointestinal: Yes: Normal Bowel Sounds, Soft. No: Tenderness Edema: No Additional Findings/Remarks: - Review of Systems Constitutional: denies: Chills, Fever Cardiovascular: denies Shortness of Breath. (+) Chest Pain, (-) Palpitations Respiratory: denies SOB, SOB on Exertion. denies: Cough, Hemoptysis, Orthopnea , PND Gastrointestinal: denies: Abdominal Pain, Constipation, Diarrhea, Melena, Nausea , Rectal Bleeding, Vomiting Genitourinary: denies: Dysuria, Hematuria Musculoskeletal: denies: Back Pain, Joint Pain Neurological: denies: Dizziness, Headache, Seizure, Syncope Labs: CBC, BMP 03/12/19 05:50 03/12/19 05:50 INR, PTT INR 0.98 (0.83-1.09) 03/09/19 21:51 Problem List - Problems (1) Hypercholesterolemia Code(s): E78.00 - PURE HYPERCHOLESTEROLEMIA, UNSPECIFIED (2) Abnormal nuclear cardiac imaging test Code(s): R93.1 - ABNORMAL FINDINGS ON DX IMAGING OF HEART AND COR CIRC (3) Angina pectoris Code(s): I20.9 - ANGINA PECTORIS, UNSPECIFIED (4) Chest pain Code(s): R07.9 - CHEST PAIN, UNSPECIFIED Qualifiers: Chest pain type: unspecified Qualified Code(s): R07.9 - Chest pain, unspecified Assessment/Plan 1. Chest pain with exertion, angina pectoris 2. Hypercholesterolemia PLAN: 1. Ruled out for OR with negative troponins 2. Nuclear stress MPI revealed small subtle anteroseptal reversible defect suggests mild ischemia otherwise inferobasal attenuation 3. Echocardiography noted 4. Continue ASA 5. Continue Metoprolol ER 25 mg QD 6. Add Ranexa or Imdur as patient should be on 2 anti-anginal prior to proceeding with invasive intervention. Would optimize medical therapy for now 7. Continue Atorvastatin Keep patient inpatient overnight. Will discuss further in AM Kamran Gandara MD
[2019-03-12] MEDS ORDERED: NITROGLYCERIN SUBLINGUAL 1/150 0.4 MG TAB ONE (12:55)
[2019-03-12] MEDS ORDERED: AMINOPHYLLINE 250 MG/10 ML VIAL ONE (13:05)
[2019-03-12] MEDS ORDERED: AMINOPHYLLINE 250 MG/10 ML VIAL IVPUSH ONE (13:15)
[2019-03-12] MEDS ORDERED: NITROGLYCERIN SUBLINGUAL 1/150 0.4 MG TAB SL ONE (13:15)
[2019-03-12] MEDS: NICOTINE 14 MG/24 HOURS TOPICAL PATCH TD SCH (14:32)
[2019-03-12] MEDS: metoPROLOL SUCCINATE 25 MG TAB.SR.24H (FP) PO SCH (14:32)
[2019-03-12] MEDS: ENOXAPARIN NA (PORCINE) 40 MG/0.4 ML DISP.SYRIN SQ SCH (14:32)
[2019-03-12] MEDS: ASPIRIN 81 MG CHEWABLE TABLETS PO SCH (14:32)
[2019-03-12] MEDS: CLOPIDOGREL BISULFATE 75 MG TABLET (FP) PO SCH (14:32)
--- NOTE | 2019-03-12 18:05 | PN ---
Teaching Attending Note Name of Resident: Alycia Turner ATTENDING PHYSICIAN STATEMENT I saw and evaluated the patient. I reviewed the resident's note and discussed the case with the resident. I agree with the resident's findings and plan as documented. SUBJECTIVE: Patient is an georgian speaking , Denies any chest pain with no acute distress. he is visiting here from [place], has been here a month. Vital Signs Temperature 98.5 F 03/12/19 15:46 Pulse Rate 89 03/12/19 15:46 Respiratory Rate 20 03/12/19 15:46 Blood Pressure 131/78 03/12/19 15:46 O2 Sat by Pulse Oximetry (%) 99 03/12/19 09:00 GENERAL: The patient is awake, alert, and fully oriented, in no acute distress. HEAD: Normal with no signs of trauma. EYES: PERRL, extraocular movements intact, sclera anicteric, conjunctiva clear. ENT: Ears normal, oropharynx clear without exudates, moist mucous membranes. NECK: Trachea midline, full range of motion, supple. LUNGS: Breath sounds equal, clear to auscultation bilaterally, no wheezes, no crackles, no accessory muscle use. HEART: Regular rate and rhythm, S1, S2 without murmur, rub or gallop. ABDOMEN: Soft, nontender, nondistended, normoactive bowel sounds, no guarding, no rebound, no hepatosplenomegaly, no masses. EXTREMITIES: 2+ pulses, warm, well-perfused, no edema. NEUROLOGICAL: Cranial nerves II through XII grossly intact. Normal speech, gait not observed. PSYCH: Normal mood, normal affect. SKIN: Warm, dry, normal turgor, no rashes or lesions noted CBCD WBC 8.0 K/mm3 (4.0-10.0) 03/12/19 05:50 RBC 4.79 M/mm3 (4.00-5.60) 03/12/19 05:50 Hgb 15.5 GM/dL (11.7-16.9) 03/12/19 05:50 Hct 44.5 % (35.4-49) 03/12/19 05:50 MCV 92.9 fl (80-96) 03/12/19 05:50 MCHC 34.8 g/dl (32.0-35.9) 03/12/19 05:50 RDW 12.9 % (11.9-15.9) 03/12/19 05:50 Plt Count 177 K/MM3 (134-434) 03/12/19 05:50 MPV 11.9 fl (7.5-11.1) H 03/12/19 05:50 CMP Sodium 140 mmol/L (136-145) 03/12/19 05:50 Potassium 4.1 mmol/L (3.5-5.1) 03/12/19 05:50 Chloride 107 mmol/L (98-107) 03/12/19 05:50 Carbon Dioxide 24 mmol/L (21-32) 03/12/19 05:50 Anion Gap 9 MMOL/L (8-16) 03/12/19 05:50 BUN 15.4 mg/dL (7-18) 03/12/19 05:50 Creatinine 1.0 mg/dL (0.55-1.3) 03/12/19 05:50 Random Glucose 115 mg/dL (74-106) H 03/12/19 05:50 Calcium 8.6 mg/dL (8.5-10.1) 03/12/19 05:50 Total Bilirubin 0.5 mg/dL (0.2-1) 03/10/19 05:30 AST 43 U/L (15-37) H 03/10/19 05:30 ALT 107 U/L (13-61) H 03/10/19 05:30 Alkaline Phosphatase 73 U/L (45-117) 03/10/19 05:30 Total Protein 6.4 g/dl (6.4-8.2) 03/10/19 05:30 Albumin 3.6 g/dl (3.4-5.0) 03/10/19 05:30 CARDIAC ENZYMES Creatine Kinase 130 U/L (26-308) 03/09/19 21:51 Troponin I < 0.02 ng/ml (0.00-0.05) 03/10/19 01:34 Home Medications Medication Instructions Recorded Aspirin 81 mg PO DAILY 03/09/19 Atorvastatin Ca [Lipitor] 20 mg PO HS #30 tablet 03/12/19 Metoprolol Succinate [Toprol XL -] 25 mg PO DAILY #30 tab.sr.24h 03/12/19 Laboratory Tests 03/09/19 03/10/19 03/10/19 21:51 01:34 05:30 Troponin I < 0.02 < 0.02 Triglycerides 133 Cholesterol 194 Total LDL Cholesterol 143 H HDL Cholesterol 35 L Assessment and plan: Patient is a 53yo male with a PMhx of HLD (not on medication), strong family CAD h/o smoking who presents with chest pain on exertion. Patient has been having this chest pain for 4-5 days and it is worsening. # Angina r/o ACS ; ekg nl on asa/plavix/lipitor/toprol , cardio consult seen by dr emam berumen MD echo, mibi stress test on tuesday. will continue to monitor DVT Px: continue lovenox
--- NOTE | 2019-03-12 18:29 | PN ---
Physical Exam: SUBJECTIVE: Patient seen and examined in the afternoon. No acute events during the night and morning. Patient complains of mild chest pain, but no shortness of breath, no abdominal pain, no fever, no chills. OBJECTIVE: Vital Signs Period Temp Pulse Resp BP Sys/Caal Pulse Ox Last 24 Hr 97.8 F-98.5 F 76-89 20-20 113-137/68-78 99-99 GENERAL: The patient is awake, alert, and fully oriented, in no acute distress. NECK: Trachea midline, full range of motion, supple. LUNGS: Breath sounds equal, clear to auscultation bilaterally, no wheezes, no crackles, no accessory muscle use. HEART: Regular rate and rhythm, S1, S2 without murmur, rub or gallop. ABDOMEN: Soft, nontender, nondistended, normoactive bowel sounds, no guarding, no rebound. EXTREMITIES: 2+ pulses, warm, well-perfused, no edema. SKIN: Warm, dry, normal turgor, no rashes or lesions noted Laboratory Results - last 24 hr 03/12/19 03/12/19 03/12/19 05:50 05:50 05:50 WBC 8.0 RBC 4.79 Hgb 15.5 Hct 44.5 MCV 92.9 MCH 32.3 MCHC 34.8 RDW 12.9 Plt Count 177 MPV 11.9 H Sodium 140 Potassium 4.1 Chloride 107 Carbon Dioxide 24 Anion Gap 9 BUN 15.4 Creatinine 1.0 Est GFR (CKD-EPI)AfAm 98.46 Est GFR (CKD-EPI)NonAf 84.95 POC Glucometer 118 Random Glucose 115 H Calcium 8.6 Active Medications Generic Name Dose Route Start Last Admin Trade Name Freq PRN Reason Stop Dose Admin Aspirin 81 mg 03/10/19 10:00 03/12/19 14:32 Asa - PO 81 mg DAILY ABIGAIL Administration Atorvastatin Calcium 20 mg 03/10/19 22:00 03/11/19 21:22 Lipitor - PO 20 mg HS ABIGAIL Administration Clopidogrel Bisulfate 75 mg 03/10/19 10:00 03/12/19 14:32 Plavix - PO 75 mg DAILY ABIGAIL Administration Enoxaparin Sodium 40 mg 03/10/19 10:00 03/12/19 14:32 Lovenox - SQ 40 mg DAILY ABIGAIL Administration Metoprolol Succinate 25 mg 03/10/19 10:00 03/12/19 14:32 Toprol Xl - PO 25 mg DAILY ABIGAIL Administration Nicotine 14 mg 03/10/19 20:45 03/12/19 14:32 Nicoderm Patch - TD 14 mg DAILY ABIGAIL Administration Ranolazine 500 mg 03/12/19 22:00 Ranexa - PO BID ABIGAIL ASSESSMENT/PLAN: 53M with PMH significant for HLD who presented with chest pain, rule out ACS. 1)Chest Pain: -Negative tropononins. -Echo completed today: EF of 60-65%, Grade I diastolic dysfunction -Stress test completed today: Exercise portion normal. Nuclear portion shows small subtle zone of anteroseptal reversible defect suggest mild intensity ischemia. Small zone of inferobasal fixed defect compatible with diaphragmatic attenuation. -Continue Toprol 25 mg PO Daily -Continue ASA 81 mg PO Daily -Continue Ranexa 500 mg PO BID -Continue Plavix 75 mg PO Daily -Cardiology consulted, appreciate recs -Possible transfer for cath as per cardio. 2)HLD -Continue Atorvastatin 20 mg PO HS 3)Smoking Hx -Continue Nicoderm patch- 14 mg daily F: No Fluids E: Trend CMP N: Sodium/fat restricted diet. DVT: Lovenox 40 mg SQ Daily. Dispo: admitted to telemetry. Visit type - Emergency Visit Emergency Visit: Yes ED Registration Date: 03/09/19 Care time: The patient presented to the Emergency Department on the above date and was hospitalized for further evaluation of their emergent condition. - New Patient This patient is new to me today: Yes Date on this admission: 03/12/19 - Critical Care Critical Care patient: No ATTENDING PHYSICIAN STATEMENT I saw and evaluated the patient. I reviewed the resident's note and discussed the case with the resident. I agree with the resident's findings and plan as documented. SUBJECTIVE: OBJECTIVE: ASSESSMENT AND PLAN:
[2019-03-12] MEDS: ATORVASTATIN CA 20 MG TABLET (FP) PO SCH (21:35)
[2019-03-12] MEDS: RANOLAZINE E.R. 500 MG TABLET (FP) PO SCH (21:39)
[2019-03-13 06:40] LABS: BASO % 0.5 % (0-2.0); EOS % 2.1 % (0-4.5); HEMOGLOBIN 15.6 GM/dL (11.7-16.9); LYMPH % 33.3 % (8-40); MCH 32.3 pg (25.7-33.7); MCHC 34.8 g/dl (32.0-35.9); MEAN CELL VOLUME 92.9 fl (80-96); MEAN PLT VOLUME 12.1 fl (7.5-11.1); MONO % 7.5 % (3.8-10.2); NEUT % 56.6 % (42.8-82.8); PLATELET COUNT 182 K/MM3 (134-434); RBC 4.84 M/mm3 (4.00-5.60); RDW 12.8 % (11.9-15.9); WHITE BLOOD COUNT 7.9 K/mm3 (4.0-10.0)
--- NOTE | 2019-03-13 06:55 | PN ---
Progress Note (short form) - Note Progress Note: Chief Complaint: Events noted, notes reviewed, patient reported chest discomfort with his pharmacologic Lexiscan myocardial perfusion imaging study, currently denies any recurrent chest discomfort, denies any dyspnea, has been reporting chest discomfort with mild to moderate physical exertion History of Present Illness: Seen and examined on telemetry. Events noted, notes reviewed, patient reported chest discomfort with his pharmacologic Lexiscan myocardial perfusion imaging study, currently denies any recurrent chest discomfort, denies any dyspnea, has been reporting chest discomfort with mild to moderate physical exertion Echocardiography revealed normal left ventricular size and systolic function with estimated LVEF between 60-65%, grade I diastolic dysfunction, normal right ventricular size and systolic function, mild tricuspid valve regurgitation with no evidence of pulmonary hypertension. Pharmacologic Lexiscan myocardial perfusion imaging study revealed small size anteroseptal wall defect compatible with mild ischemia, small inferobasal wall defect compatible with diaphragmatic attenuation with normal left ventricular contraction pattern on LV gated analysis with calculated LV EF of 67% at rest and 74% post Lexiscan infusion Medications: Current Medications Aspirin (Asa -) 81 mg PO DAILY [facility] Last Admin: 03/12/19 14:32 Dose: 81 mg Atorvastatin Calcium (Lipitor -) 20 mg PO HS [facility] Last Admin: 03/12/19 21:35 Dose: 20 mg Clopidogrel Bisulfate (Plavix -) 75 mg PO DAILY [facility] Last Admin: 03/12/19 14:32 Dose: 75 mg Enoxaparin Sodium (Lovenox -) 40 mg SQ DAILY [facility] Last Admin: 03/12/19 14:32 Dose: 40 mg Metoprolol Succinate (Toprol Xl -) 25 mg PO DAILY [facility] Last Admin: 03/12/19 14:32 Dose: 25 mg Nicotine (Nicoderm Patch -) 14 mg TD DAILY [facility] Last Admin: 03/12/19 14:32 Dose: 14 mg Ranolazine (Ranexa -) 500 mg PO BID [facility] Last Admin: 03/12/19 21:39 Dose: 500 mg Review of Systems - Review of Systems Constitutional: denies: Chills, Fever Cardiovascular: As noted above Respiratory: denies: Cough or Sputum Production Gastrointestinal: denies: Nausea, Vomiting, Diarrhea, Constipation, Abdominal Pain Neurological: denies: Headaches Vital Signs: Last Vital Signs Temp Pulse Resp BP Pulse Ox 98.1 F 86 18 126/76 99 03/13/19 02:00 03/13/19 02:00 03/13/19 02:00 03/13/19 02:00 03/12/19 21:00 Intake & Output 03/10/19 03/11/19 03/12/19 03/13/19 23:59 23:59 23:59 23:59 Intake Total 2009 1360 500 Balance 2009 1360 500 Weight 192 lb 9.6 oz Neck: Supple Negative JVD No Bruit Respiratory: Diminished Breath Sounds at the Bases Cardiovascular: S1 S2 Regular Rate and Rhythm no Murmurs Gastrointestinal: Soft Benign Normal Bowel Sounds Ext: No Edema Labs: CBC, BMP 03/13/19 05:25 03/13/19 05:25 Hepatic Panel Total Bilirubin 0.5 mg/dL (0.2-1) 03/10/19 05:30 AST 43 U/L (15-37) H 03/10/19 05:30 ALT 107 U/L (13-61) H 03/10/19 05:30 Alkaline Phosphatase 73 U/L (45-117) 03/10/19 05:30 Albumin 3.6 g/dl (3.4-5.0) 03/10/19 05:30 INR, PTT INR 0.98 (0.83-1.09) 03/09/19 21:51 Assessment/Plan ASSESSMENT: 1. Chest pain syndrome clinical presentation of which is consistent with coronary artery disease abnormal pharmacologic Lexiscan myocardial perfusion imaging study angina pectoris/progressive- unstable angina 2. Diastolic left ventricular dysfunction with clinical class 0 [place] [employer] classification left ventricular failure 3. Hypercholesterolemia 4. Tobacco abuse PLAN: 1. Continue Toprol-XL therapy 2. Continue Ranexa therapy 3. Continue Lipitor therapy but increased dosage 4. Continue Ecotrin and Plavix therapies 5. Considering the above-noted clinical presentation with progressive angina pectoris and an abnormal pharmacologic Lexiscan myocardial perfusion imaging study would recommend early left heart cardiac catheterization coronary angiography, risks, benefits and alternatives were reviewed in detail with the patient; patient is to be transferred to and accepting facility/issue is lack of insurance coverage- above was reviewed and discussed in detail with the patient (case was discussed with the medical practice assistant/Dr. Ira Jimenez who had contacted [facility] and according to the resident patient has been accepted for a transfer) Kamaljit Vargas M.D.
[2019-03-13 07:09] LABS: ALBUMIN 3.7 g/dl (3.4-5.0); BILIRUBIN,TOTAL 0.7 mg/dL (0.2-1); BLOOD UREA NITROGEN 14.1 mg/dL (7-18); CALCIUM 9.3 mg/dL (8.5-10.1); CREATININE 1.1 mg/dL (0.55-1.3); POTASSIUM 4.5 mmol/L (3.5-5.1); TOT PROT 6.7 g/dl (6.4-8.2)
--- NOTE | 2019-03-13 08:59 | PN ---
Teaching Attending Note Name of Resident: Alycia Turner ATTENDING PHYSICIAN STATEMENT I saw and evaluated the patient. I reviewed the resident's note and discussed the case with the resident. I agree with the resident's findings and plan as documented. SUBJECTIVE: Patient is an divehi speaking , Denies any chest pain with no acute distress. he is visiting here from [place], has been here a month. Vital Signs Temperature 98 F 03/13/19 06:00 Pulse Rate 79 03/13/19 06:00 Respiratory Rate 18 03/13/19 06:00 Blood Pressure 135/69 03/13/19 06:00 O2 Sat by Pulse Oximetry (%) 99 03/12/19 21:00 GENERAL: The patient is awake, alert, and fully oriented, in no acute distress. HEAD: Normal with no signs of trauma. EYES: PERRL, extraocular movements intact, sclera anicteric, conjunctiva clear. ENT: Ears normal, oropharynx clear without exudates, moist mucous membranes. NECK: Trachea midline, full range of motion, supple. LUNGS: Breath sounds equal, clear to auscultation bilaterally, no wheezes, no crackles, no accessory muscle use. HEART: Regular rate and rhythm, S1, S2 without murmur, rub or gallop. ABDOMEN: Soft, nontender, nondistended, normoactive bowel sounds, no guarding, no rebound, no hepatosplenomegaly, no masses. EXTREMITIES: 2+ pulses, warm, well-perfused, no edema. NEUROLOGICAL: Cranial nerves II through XII grossly intact. Normal speech, gait not observed. PSYCH: Normal mood, normal affect. SKIN: Warm, dry, normal turgor, no rashes or lesions noted CBCD WBC 7.9 K/mm3 (4.0-10.0) 03/13/19 05:25 RBC 4.84 M/mm3 (4.00-5.60) 03/13/19 05:25 Hgb 15.6 GM/dL (11.7-16.9) 03/13/19 05:25 Hct 45.0 % (35.4-49) 03/13/19 05:25 MCV 92.9 fl (80-96) 03/13/19 05:25 MCHC 34.8 g/dl (32.0-35.9) 03/13/19 05:25 RDW 12.8 % (11.9-15.9) 03/13/19 05:25 Plt Count 182 K/MM3 (134-434) 03/13/19 05:25 MPV 12.1 fl (7.5-11.1) H 03/13/19 05:25 CMP Sodium 140 mmol/L (136-145) 03/13/19 05:25 Potassium 4.5 mmol/L (3.5-5.1) 03/13/19 05:25 Chloride 107 mmol/L (98-107) 03/13/19 05:25 Carbon Dioxide 24 mmol/L (21-32) 03/13/19 05:25 Anion Gap 9 MMOL/L (8-16) 03/13/19 05:25 BUN 14.1 mg/dL (7-18) 03/13/19 05:25 Creatinine 1.1 mg/dL (0.55-1.3) 03/13/19 05:25 Random Glucose 119 mg/dL (74-106) H 03/13/19 05:25 Calcium 9.3 mg/dL (8.5-10.1) 03/13/19 05:25 Total Bilirubin 0.7 mg/dL (0.2-1) 03/13/19 05:25 AST 41 U/L (15-37) H 03/13/19 05:25 ALT 116 U/L (13-61) H 03/13/19 05:25 Alkaline Phosphatase 71 U/L (45-117) 03/13/19 05:25 Total Protein 6.7 g/dl (6.4-8.2) 03/13/19 05:25 Albumin 3.7 g/dl (3.4-5.0) 03/13/19 05:25 CARDIAC ENZYMES Creatine Kinase 130 U/L (26-308) 03/09/19 21:51 Troponin I < 0.02 ng/ml (0.00-0.05) 03/10/19 01:34 Medication Instructions Recorded Aspirin 81 mg PO DAILY 03/09/19 Atorvastatin Ca [Lipitor] 20 mg PO HS #30 tablet 03/12/19 Metoprolol Succinate [Toprol XL -] 25 mg PO DAILY #30 tab.sr.24h 03/12/19 Laboratory Tests 03/09/19 03/10/19 03/10/19 21:51 01:34 05:30 Troponin I < 0.02 < 0.02 Triglycerides 133 Cholesterol 194 Total LDL Cholesterol 143 H HDL Cholesterol 35 L Current Medications Generic Name Dose Route Start Last Admin Trade Name Dwain PRN Reason Stop Dose Admin Aspirin 81 mg 03/10/19 10:00 03/12/19 14:32 Asa - PO 81 mg DAILY ABIGAIL Administration Atorvastatin Calcium 20 mg 03/10/19 22:00 03/12/19 21:35 Lipitor - PO 20 mg HS ABIGAIL Administration Clopidogrel Bisulfate 75 mg 03/10/19 10:00 03/12/19 14:32 Plavix - PO 75 mg DAILY ABIGAIL Administration Enoxaparin Sodium 40 mg 03/10/19 10:00 03/12/19 14:32 Lovenox - SQ 40 mg DAILY ABIGAIL Administration Metoprolol Succinate 25 mg 03/10/19 10:00 03/12/19 14:32 Toprol Xl - PO 25 mg DAILY ABIGAIL Administration Nicotine 14 mg 03/10/19 20:45 03/12/19 14:32 Nicoderm Patch - TD 14 mg DAILY ABIGAIL Administration Ranolazine 500 mg 03/12/19 22:00 03/12/19 21:39 Ranexa - PO 500 mg BID ABIGAIL Administration Home Medications Medication Instructions Recorded Aspirin 81 mg PO DAILY 03/09/19 Metoprolol Succinate [Toprol XL -] 25 mg PO DAILY #30 tab.sr.24h 03/12/19 Atorvastatin Ca [Lipitor] 40 mg PO HS #30 tablet 03/13/19 Clopidogrel Bisulfate [Plavix -] 75 mg PO DAILY tablet 03/13/19 Enoxaparin [Lovenox -] 40 mg SQ DAILY disp.syrin 03/13/19 Nicotine Patch [Nicoderm Patch -] 14 mg TD DAILY patch 03/13/19 Ranolazine [Ranexa -] 500 mg PO BID tab 03/13/19 Assessment and plan: Patient is a 53yo male with a PMhx of HLD (not on medication), strong family CAD h/o smoking who presents with chest pain on exertion. Patient has been having this chest pain for 4-5 days and it is worsening. # Angina due to ACS: positive stress test , willcontinue asa/plavix/lipitor/ toprol , willtx the patient to [facility] s/p positive for stress test. Echo is normal; with EJF 60-65% DVT Px: continue lovenox
[2019-03-13] MEDS: NICOTINE 14 MG/24 HOURS TOPICAL PATCH TD SCH (09:23)
[2019-03-13] MEDS: ENOXAPARIN NA (PORCINE) 40 MG/0.4 ML DISP.SYRIN SQ SCH (09:23)
[2019-03-13] MEDS: ASPIRIN 81 MG CHEWABLE TABLETS PO SCH (09:23)
[2019-03-13] MEDS: RANOLAZINE E.R. 500 MG TABLET (FP) PO SCH (09:24)
[2019-03-13] MEDS: metoPROLOL SUCCINATE 25 MG TAB.SR.24H (FP) PO SCH (09:24)
[2019-03-13] MEDS: CLOPIDOGREL BISULFATE 75 MG TABLET (FP) PO SCH (09:24)
--- NOTE | 2019-03-13 13:57 | DS ---
Physical Exam: SUBJECTIVE: Patient seen and examined in the morning. No acute events overnight. Patient complains of mild chest pain, denies shortness of breath, headache, generalized myalgias, fever, and cough. OBJECTIVE: Vital Signs Period Temp Pulse Resp BP Sys/Caal Pulse Ox Last 24 Hr 97.7 F-98.8 F 79-98 18-20 120-142/55-84 99-99 PHYSICAL EXAM GENERAL: The patient is awake, alert, and fully oriented, in no acute distress. HEAD: Normal with no signs of trauma. EYES: PERRL, extraocular movements intact, sclera anicteric, conjunctiva clear. NECK: Trachea midline, supple, no carotid bruits. LUNGS: Breath sounds equal, clear to auscultation bilaterally, no wheezes, no crackles, no accessory muscle use. HEART: Regular rate and rhythm, S1, S2 without murmur, rub or gallop. ABDOMEN: Soft, nontender, nondistended, normoactive bowel sounds, no guarding, no rebound, no hepatosplenomegaly, no masses. EXTREMITIES: 2+ pulses, warm, well-perfused, no edema. SKIN: Warm, dry, normal turgor, no rashes or lesions noted. LABS Laboratory Results - last 24 hr CBC, BMP 03/13/19 05:25 03/13/19 05:25 HOSPITAL COURSE: Date of Admission:03/13/19 Date of Discharge: 03/13/19 53 M with PMH of HLD who presented was admitted to the hospital for chest pain and to rule out acute coronary syndrome. In the ED patient was given 321 mg of Aspirin and nitro paste. EKG was NSR and showed nonspecific st segement changes. Initial troponins were negative. Patient was started on atorvastatin calcium 20 mg, clopidogrel 75 mg, metoprolol 25 mg, aspirin 81 mg. Patient had completed which showed EF of 60-65% and Grade I diastolic dysfunction. Stress test showed small subtle zone of anteroseptal reversible defect suggesting mild intensity ischemia, small zone of inferobasal fixed defect compatible with diaphragmatic attentuation. Patient was then ruled to need cardiac cath so was transferred to [facility]. Imaging done this stay: Chest X-Ray: clear lungs, normal mediastinum, sharp angle. Bones and soft tissue intact. Echo: LV normal in size. EF- 60-65%. Grade I Diastolic dysfunction. Right ventricular systolic function is normal. LA is normal. RA is normal. Thre is mild Tricuspid regurgitation, mild pulmonic valve regurgitation. Minutes to complete discharge: 35 Discharge Summary Problems reviewed: Yes Reason For Visit: CHEST PAIN Current Active Problems Abnormal nuclear cardiac imaging test (Acute) Angina pectoris (Acute) Hypercholesterolemia (Acute) Condition: Good - Instructions Diet, Activity, Other Instructions: You were admitted to the hospital for chest pain. While you were here we did an echocardiogram. It showed that your heart is functioning well. Additionally we did a stress test of your heart, it showed normal function of your heart. While you were here we started you on new medications. They are as follows: Atorvastatin Calcium 20 mg by mouth, once at night Metoprolol 25 mg by mouth, once a day Aspirin 81 mg by mouth, once a day Please take these medications. It is important that you do not miss doses, and that you follow up with your doctor. [place] [facility] [place] 1 week Follow up with within 1 week. Please do not miss these appointments. It is important to follow up and evaluate how these medications are affecting you. Return to the Emergency Department if you have chest pain, shortness of breath, or worsening of your symptoms. Referrals: [facility] [Provider Group] - 1 Week Kamran Gandara MD [Staff Physician] - 1 Week - Home Medications Comprehensive Discharge Medication List: Ambulatory Orders Aspirin 81 mg PO DAILY 03/09/19 Atorvastatin Ca [Lipitor] 20 mg PO HS #30 tablet 03/12/19 Metoprolol Succinate [Toprol XL -] 25 mg PO DAILY #30 tab.sr.24h 03/12/19 This patient is new to me today: No Emergency Visit: Yes ED Registration Date: 03/13/19 Care time: The patient presented to the Emergency Department on the above date and was hospitalized for further evaluation of their emergent condition. Critical Care patient: No - Discharge Referral Referred to [facility] Med P.C[facility] No ATTENDING PHYSICIAN STATEMENT I saw and evaluated the patient. I reviewed the resident's note and discussed the case with the resident. I agree with the resident's findings and plan as documented. SUBJECTIVE: OBJECTIVE: ASSESSMENT AND PLAN:
[2019-03-13 18:33] VITALS: BP 123/75; PULSE 80; TEMP 98.4
== END 2019-03-13 19:00 | disposition short-term general hospital (02) | DRG 198 ==
LOC: JER 20:28 → JERBED 22:37 → J4W 03-10 01:41 → OBSVTOIN 03-13 08:27
PROVIDERS: ADMIT Internal Medicine; ATTEND Internal Medicine
DX: I20.9 Angina pectoris, unspecified (principal); R07.89 Other chest pain; E78.00 Pure hypercholesterolemia, unspecified; F17.210 Nicotine dependence, cigarettes, uncomplicated; R93.1 Abnormal findings on diagnostic imaging of heart and coronary circulation; Z82.49 Family history of ischemic heart disease and other diseases of the circulatory system
CPT/HCPCS: 36415; 71045-TC-FY; 78452-TC; 80048; 80053; 80061; 82550; 82962; 83721; 83735; 84100; 84484; 85025; 85027; 85610; 85730; 93005; 93010; 93017; 93306-TC; 99284-25; A9502; G0378; J2785